=== PATIENT | male | born 1960 | race Caucasian/White ===

== ENCOUNTER 2022-06-13 07:58 | Outpatient (REF) | payer OTHER, SELFPAY ==
--- NOTE | 2022-06-13 08:28 | MHC.AU.HAS ---
Hearing Aid Evaluation Date of Visit: 06/13/22 Historical Information: Description of Hearing: Right: Normal from 250-3000 Hz, sloping to moderate sensorineural hearing loss by 8000 Hz Left: Mild at 250-500 Hz, rising to normal from 750-1500 Hz, sloping to severe sensorineural hearing loss by 8000 Hz Summary: Patient was seen at [facility] and received medical clearance for a left-sided hearing instrument. Patient reports he has difficulty hearing in noise and if people are on his left side. He also experiences tinnitus. Hearing aid options were discussed. Hearing Aid Prescription: Based on the individual?s shared listening needs, communication environments, dexterity, desire for connectivity, and personal preferences, the following prescription for amplification has been made: Left ear: Data Control Clerk Supervisor: [employer] Model: HangIteo P70-R Battery Size: Rechargeable Color: Beige 01 Tallow Maker: 1M Action Taken/Action Needed: Hearing Instrument Fitting to be scheduled when materials arrive Primary Diagnosis: H90.3 Bilateral Sensorineural Hearing Loss Signature: Provider: Kerri Herrera, [facility]
== END 2022-06-13 07:59 | disposition home or self-care (01) ==
LOC: HO.HAP 07:58
PROVIDERS: PCP Family Medicine; Visit Provider Otolaryngology
DX: Z46.1 Encounter for fitting and adjustment of hearing aid (principal); H90.3 Sensorineural hearing loss, bilateral
CPT/HCPCS: 92591

== ENCOUNTER 2022-07-25 08:11 | Outpatient (REF) | payer OTHER, SELFPAY ==
--- NOTE | 2022-07-25 12:39 | MHC.AU.HFA ---
Hearing Instrument Fitting- Adult- Binaural Date of Visit: 07/25/22 Left Ear: Verenice Martin P70-R, SN: [id number], Beige Repair Warranty: 09/10/2025 Loss and Damage Warranty: 09/10/2025 Service Plan: 07/25/2023 Battery Size: Rechargeable Glass Toughening Operator: 1M Medium Vented Dome Type of Wax Guard: Cerushield Disk Summary of Fitting: Feedback transitional care manager run. Verifit performed and levels adjusted to better reach targets. Target gain set at 100%. Patient was pleased with the sound of the instrument and did not feel any additional adjustments were necessary. He noted that, so far, the tinnitus seems softer. Hearing aid care and maintenance were discussed and practiced. Hearing aid was not paired to his phone at this time, as he usually uses his better, un-aided right ear on the phone. Recommendations: Please call our clinic with any questions or concerns. Hearing aid follow-up as needed. Diagnosis Code(s): Primary Diagnosis: H90.3 Bilateral Sensorineural Hearing Loss Signature: Provider: Toña Herrera, [facility]
== END 2022-07-25 08:12 | disposition home or self-care (01) ==
LOC: HO.HAP 08:11
PROVIDERS: Visit Provider Family Medicine
DX: Z46.1 Encounter for fitting and adjustment of hearing aid (principal); H90.3 Sensorineural hearing loss, bilateral
CPT/HCPCS: V5011; V5020; V5160; V5257; V5261